=== PATIENT | female | born 1995 | race Caucasian/White ===

== ENCOUNTER 2018-03-16 16:34 | Emergency (ER) | payer SELFPAY ==
[~2018-03-16] VITALS: Ht 160 cm; Wt 59.0 kg
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
--- NOTE | 2018-03-16 17:07 | NUR ---
DR NOLAN AT BEDSIDE FOR EVAL.
[2018-03-16] MEDS ORDERED: HYDROCODONE/APAP 5/325MG 1 EACH TABLET ONE (17:15)
[2018-03-16] MEDS: HYDROCODONE/APAP 5/325MG 1 EACH TABLET PO ONE (17:18)
--- NOTE | 2018-03-16 17:33 | NUR ---
RADIOLOGY AT BEDSIDE FOR L SHOULDER AND CHEST XRAY.
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
--- NOTE | 2018-03-16 18:53 | NUR ---
Patient discharged to home in stable condition. Written and verbal after care instructions given. Patient verbalizes understanding of instruction.
[2018-03-16 18:54] VITALS: BP 125/87
== END 2018-03-16 18:55 | disposition home or self-care (01) ==
LOC: ER 16:36
DX: S00.83XA Contusion of other part of head, initial encounter (principal); S20.212A Contusion of left front wall of thorax, initial encounter; S00.03XA Contusion of scalp, initial encounter; Z60.2 Problems related to living alone; Z59.0 Homelessness; Y04.8XXA Assault by other bodily force, initial encounter; Y93.89 Activity, other specified; Y92.89 Other specified places as the place of occurrence of the external cause; Y99.8 Other external cause status
CPT/HCPCS: 70450-TC; 70486-TC; 71045-TC; 72125-TC; 73020; A4606; Z7610

== ENCOUNTER 2018-03-17 20:55 | Emergency (ER) | payer OTHER ==
[~2018-03-17] VITALS: Ht 165.1 cm; Wt 59.0 kg
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
--- NOTE | 2018-03-17 20:56 | NUR ---
ER PATENTED HOGSHEAD ASSEMBLER DEGRASSE AT BEDSIDE
[2018-03-17] MEDS ORDERED: HYDROCODONE/APAP 5/325MG 1 EACH TABLET ONE (21:39)
[2018-03-17] MEDS: HYDROCODONE/APAP 5/325MG 1 EACH TABLET PO ONE (21:40)
--- NOTE | 2018-03-17 21:40 | NUR ---
TV NEWS DIRECTOR AT BEDSIDE
[2018-03-17 22:31] VITALS: BP 140/81
== END 2018-03-17 22:32 ==
LOC: ER 20:56
DX: S49.82XA Other specified injuries of left shoulder and upper arm, initial encounter (principal); S09.8XXA Other specified injuries of head, initial encounter; Z60.2 Problems related to living alone; Z59.0 Homelessness; Y04.0XXA Assault by unarmed brawl or fight, initial encounter; Y93.89 Activity, other specified; Y92.89 Other specified places as the place of occurrence of the external cause; Y99.8 Other external cause status
CPT/HCPCS: 73000-TC; A4606; Z7610